=== PATIENT | male | born 1960 | race Two or more races ===

== ENCOUNTER 2018-02-11 06:05 | Day surgery (SDC) | payer BC ==
[2018-02-11] MEDS ORDERED: FENTAnyl 50 MCG/ML VIAL (08:38)
[2018-02-11] MEDS ORDERED: MIDAZOLAM 1 MG/ML 2 ML INJ (08:38)
== END 2018-02-11 11:42 | disposition home or self-care (01) ==
LOC: GIL 06:05
DX: Z12.11 Encounter for screening for malignant neoplasm of colon (principal); K64.8 Other hemorrhoids
CPT/HCPCS: 45378